=== PATIENT | male | born 1990 | race Caucasian/White ===

== ENCOUNTER 2016-09-08 01:05 | Emergency (ER) | payer OTHER ==
[2016-09-08] MEDS ORDERED: KETOROLAC 60 MG/2 ML VIAL IVP STA (02:21)
[2016-09-08] MEDS ORDERED: KETOROLAC 30 MG/ML VIAL ONE (02:24)
[2016-09-08] MEDS ORDERED: IOPAMIDOL-300 100 ML VIAL IVP ONE (03:20)
[2016-09-08] MEDS ORDERED: ONDANSETRON 4 MG/2 ML VIAL IVP STA (04:47)
[2016-09-08] MEDS ORDERED: HYDROmorphone 1 MG/ML SYRINGE IVP STA (04:47)
[2016-09-08] MEDS ORDERED: HYDROmorphone 1 MG/ML SYRINGE ONE (04:58)
[2016-09-08] MEDS ORDERED: ONDANSETRON 4 MG/2 ML VIAL ONE (04:59)
== END 2016-09-08 05:46 | disposition home or self-care (01) ==
DX: S39.011A Strain of muscle, fascia and tendon of abdomen, initial encounter (principal); X58.XXXA Exposure to other specified factors, initial encounter
CPT/HCPCS: 36415; 74177; 80053; 83690; 85025; 96374; 96375; 99283; 99284; J1170; Q9967